=== PATIENT | male | born 1985 | race Caucasian/White ===

== ENCOUNTER → 2019-01-28 | Emergency (ER) | payer MEDICAID ==
[~2019-01-28] VITALS: Ht 170.2 cm; Wt 76.6 kg
[~2019-01-28] MED LIST: KETOROLAC 30 MG/1 ML IM ONE; KETOROLAC 30 MG/1 ML ONE
[2019-01-28 19:48] VITALS: BP 131/68
== END ==
LOC: ED 21:00
DX: S22.32XA Fracture of one rib, left side, initial encounter for closed fracture (principal); W01.0XXA Fall on same level from slipping, tripping and stumbling without subsequent striking against object, initial encounter; Y93.89 Activity, other specified; Y92.89 Other specified places as the place of occurrence of the external cause; Y99.8 Other external cause status
CPT/HCPCS: 71101; 96372; 99283; J1885